=== PATIENT | female | born 1970 | race Two or more races ===

== ENCOUNTER 2016-11-15 22:11 | Emergency (ER) | payer SELFPAY ==
[~2016-11-15] VITALS: Ht 162.6 cm; Wt 38.6 kg
[2016-11-15] MEDS ORDERED: NKM (22:19)
[2016-11-15] MEDS ORDERED: Morphine Sulfate 4mg/ml Inj IVP ONE ×2 (22:30→23:30)
[2016-11-15 23:14] VITALS: BP 130/58
[2016-11-15] MEDS ORDERED: Ketorolac 30mg Inj ONE (23:50)
[2016-11-16] MEDS ORDERED: Morphine Sulfate 4mg/ml Inj IVP ONE
[2016-11-16] MEDS ORDERED: Ketorolac 30mg Inj IV ONE
[2016-11-16 00:31] VITALS: BP 134/74
[2016-11-16] MEDS ORDERED: HYDROCODON-ACE1 EA15 ORAL (00:44)
[2016-11-16] MEDS ORDERED: IBUPROFEN600 MG ORAL (00:44)
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
[2016-11-16 00:56] VITALS: BP 136/73
--- NOTE | 2016-11-16 08:40 | Diagnostic Imaging Report ---
Indications: Left humeral dislocation, status post closed reduction Technique: 3 views left shoulder 11/16/2016 0001 Findings: Comparison: Prereduction images 11/15/16 Left humeral head now resides within the glenoid fossa, anatomically aligned with the glenoid process. No fracture, joint space widening, or other acute change identified IMPRESSION: Anatomic reduction of previously dislocated left humerus
--- NOTE | 2016-11-16 09:57 | Diagnostic Imaging Report ---
Indications: Left shoulder pain Technique: 3 views left shoulder Findings: Comparison: None Left humerus has been dislocated from the glenoid fossa, residing beneath the scapular coracoid process. Acromioclavicular joint intact. No fracture, surrounding soft tissue swelling/foreign body/gas, or other acute change identified. IMPRESSION: Anterior dislocation left humerus
== END 2016-11-16 01:01 | disposition home or self-care (01) ==
LOC: EDBD 22:11 → EMR 22:59
DX: S43.015A Anterior dislocation of left humerus, initial encounter (principal); W19.XXXA Unspecified fall, initial encounter; Y92.89 Other specified places as the place of occurrence of the external cause
CPT/HCPCS: 23655; 29240; 73030; 96374; 96375; 99284; J1885; J2270; J2405